=== PATIENT | male | born 1975 | race African-American/Black ===

== ENCOUNTER 2018-03-24 09:51 | Inpatient (IN) | payer OTHER ==
[2018-03-24 10:17] VITALS: BMI 20.9
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
[2018-03-24] MEDS ORDERED: P-EPHED 60MG/TRIPROLIDI 2.5MG TABLET PO PRN (11:09)
[2018-03-24] MEDS ORDERED: MAG HYDROX/AL HYDROX/SIMETH 30 ML UNIT-DOSE CUP PO PRN (11:09)
[2018-03-24] MEDS ORDERED: MAGNESIUM HYDROX 2400MG/30ML ORAL SUSPENSION 30 ML CUP PO PRN (11:09)
[2018-03-24] MEDS ORDERED: MAGNESIUM CITRATE 300 ML BOTTLE PO PRN (11:09)
[2018-03-24] MEDS ORDERED: guaiFENesin/D-METHORPHAN HB 10 ML UNIT-DOSE CUPS PO PRN (11:09)
[2018-03-24] MEDS ORDERED: MENTHOL/PHENOL 1 EACH UD MM PRN (11:09)
[2018-03-24] MEDS ORDERED: ACETAMINOPHEN 325 MG TABLET (FP) PO PRN (11:09)
[2018-03-24] MEDS ORDERED: IBUPROFEN 400 MG TABLET (FP) PO PRN (11:09)
[2018-03-24] MEDS ORDERED: METHADONE HCL 10 MG TABLET (FOR DETOX USE ONLY) PO ONE (12:25)
[2018-03-24] MEDS: diazePAM 5 MG TABLET PO PRN (12:59)
[2018-03-24] MEDS: diazePAM 5 MG TABLET PO SCH ×2 (14:41→22:07)
[2018-03-24] MEDS: THIAMINE HCL 100 MG TABLET (FP) PO SCH (22:06)
[2018-03-24] MEDS: MELATONIN 5 MG TABLETS PO PRN (22:07)
[2018-03-24] MEDS ORDERED: METHADONE HCL 5 MG TABLET (FOR DETOX USE ONLY) PO ONE (23:00)
[2018-03-25] MEDS: diazePAM 5 MG TABLET PO PRN (08:52)
[2018-03-25] MEDS ORDERED: METHADONE HCL 10 MG TABLET (FOR DETOX USE ONLY) PO SCH (10:00)
[2018-03-25] MEDS: PRENATAL VITAMINS W/ FOLIC ACID TABLET (FP) PO SCH (10:14)
[2018-03-25] MEDS: diazePAM 5 MG TABLET PO SCH ×2 (10:15→22:42)
[2018-03-25 11:05] LABS: HEMATOCRIT 40.2 % (35.4-49); HEMOGLOBIN 12.9 GM/dL (11.7-16.9); MCH 30.1 pg (25.7-33.7); MEAN CELL VOLUME 94.2 fl (80-96); MEAN PLT VOLUME 8.1 fl (7.5-11.1); PLATELET COUNT 233 K/MM3 (134-434); RBC 4.27 M/mm3 (4.00-5.60); RDW 15.2 % (11.9-15.9); WHITE BLOOD COUNT 4.5 K/mm3 (4.0-10.0)
[2018-03-25 11:27] LABS: ALBUMIN 3.3 g/dl (3.4-5.0); ALK PHOS 77 U/L (45-117); ANION GAP 5 MMOL/L (8-16); BILIRUBIN,TOTAL 0.5 mg/dL (0.2-1); BLOOD UREA NITROGEN 11 mg/dL (7-18); CALCIUM 8.6 mg/dL (8.5-10.1); CHLORIDE 105 mmol/L (98-107); CO2 30 mmol/L (21-32); CREATININE 0.9 mg/dL (0.55-1.3); GLUCOSE,RANDOM 92 mg/dL (74-106); POTASSIUM 3.9 mmol/L (3.5-5.1); SGOT/AST 15 U/L (15-37); SGPT/ALT 23 U/L (13-61); SODIUM 140 mmol/L (136-145); TOT PROT 6.6 g/dl (6.4-8.2)
[2018-03-25] MEDS ORDERED: PNEUMOC 13-VAL CONJ-DIP CRM/PF 0.5 ML DISP.SYRIN IM ONE (11:57)
[2018-03-25] MEDS ORDERED: PNEUMOCOCCAL 23 VACCINE 0.5 ML VIAL IM ONE (12:00)
[2018-03-25] MEDS ORDERED: FLU VACCINE QUAD 60 MCG/0.5 ML (MDV 18-19) IM ONE (12:00)
[2018-03-25] MEDS: THIAMINE HCL 100 MG TABLET (FP) PO SCH (22:42)
[2018-03-25] MEDS: MELATONIN 5 MG TABLETS PO PRN (22:43)
[2018-03-26] MEDS ORDERED: METHADONE HCL 5 MG TABLET (FOR DETOX USE ONLY) PO SCH (06:00)
[2018-03-26] MEDS ORDERED: diazePAM 5 MG TABLET PO SCH (10:00)
[2018-03-26] MEDS: PRENATAL VITAMINS W/ FOLIC ACID TABLET (FP) PO SCH (10:16)
--- NOTE | 2018-03-26 12:15 | PN ---
[facility] Progress Note (SOAP) Subjective: PT WAS SEEN THIS MORNING IN BED. REPORTS NO ACUTE DISTRESS. ALERT O X 3. Objective: 03/26/18 12:14 Vital Signs 03/26/18 03/26/18 06:09 09:56 Temperature 97.4 F L 98.6 F Pulse Rate 58 L 72 Respiratory 16 18 Rate Blood Pressure 99/65 110/59 L Laboratory Tests 03/25/18 03/25/18 03/25/18 07:00 07:00 07:00 WBC 4.5 RBC 4.27 Hgb 12.9 Hct 40.2 MCV 94.2 MCH 30.1 MCHC 32.0 RDW 15.2 Plt Count 233 MPV 8.1 Sodium 140 Potassium 3.9 Chloride 105 Carbon Dioxide 30 Anion Gap 5 L BUN 11 Creatinine 0.9 Creat Clearance w eGFR > 60 Random Glucose 92 Calcium 8.6 Total Bilirubin 0.5 AST 15 ALT 23 Alkaline Phosphatase 77 Total Protein 6.6 Albumin 3.3 L RPR Titer Nonreactive Assessment: 03/26/18 12:14 NAD Plan: MONITOR PT STATUS
[2018-03-26] MEDS: THIAMINE HCL 100 MG TABLET (FP) PO SCH (22:14)
[2018-03-26] MEDS: MELATONIN 5 MG TABLETS PO PRN (22:14)
[2018-03-27] MEDS ORDERED: chlordiazePOXIDE HCL 25 MG CAPSULE PO PRN (10:25)
[2018-03-27] MEDS ORDERED: METHADONE HCL 10 MG TABLET (FOR DETOX USE ONLY) PO ONE ×2 (10:25→23:00)
[2018-03-27] MEDS: PRENATAL VITAMINS W/ FOLIC ACID TABLET (FP) PO SCH (10:28)
[2018-03-27] MEDS: chlordiazePOXIDE HCL 25 MG CAPSULE PO SCH ×3 (11:10→22:06)
--- NOTE | 2018-03-27 14:16 | PN ---
[facility] Progress Note (SOAP) Subjective: Feeling weak, sweating, interrupted sleep, anxious. Patient is not on any detox protocol. Patient reports alcohol and opioid dependence. Objective: 03/27/18 14:14 Last Vital Signs Temp Pulse Resp BP Pulse Ox 97.8 F 65 16 103/66 03/27/18 11:02 03/27/18 11:02 03/27/18 11:02 03/27/18 11:02 Laboratory Tests 03/25/18 03/25/18 03/25/18 07:00 07:00 07:00 WBC 4.5 RBC 4.27 Hgb 12.9 Hct 40.2 MCV 94.2 MCH 30.1 MCHC 32.0 RDW 15.2 Plt Count 233 MPV 8.1 Sodium 140 Potassium 3.9 Chloride 105 Carbon Dioxide 30 Anion Gap 5 L BUN 11 Creatinine 0.9 Creat Clearance w eGFR > 60 Random Glucose 92 Calcium 8.6 Total Bilirubin 0.5 AST 15 ALT 23 Alkaline Phosphatase 77 Total Protein 6.6 Albumin 3.3 L RPR Titer Nonreactive Labs reviewed Assessment: 03/27/18 14:14 Withdrawal symptoms Plan: Continue detox Started on librium and methadone detox protocol for alcohol and opioid dependence. Encouraged PO water intake
[2018-03-27] MEDS: THIAMINE HCL 100 MG TABLET (FP) PO SCH (22:05)
[2018-03-28] MEDS: chlordiazePOXIDE HCL 25 MG CAPSULE PO SCH (05:16)
[2018-03-28] MEDS ORDERED: METHADONE HCL 10 MG TABLET (FOR DETOX USE ONLY) PO ONE (10:00)
[2018-03-28] MEDS ORDERED: METHADONE HCL 5 MG TABLET (FOR DETOX USE ONLY) PO SCH (10:00)
[2018-03-28] MEDS: PRENATAL VITAMINS W/ FOLIC ACID TABLET (FP) PO SCH (10:06)
[2018-03-28] MEDS: chlordiazePOXIDE 5 MG CAPSULE PO SCH ×3 (10:06→22:22)
[2018-03-28] MEDS ORDERED: chlordiazePOXIDE 5 MG CAPSULE PO SCH (11:00)
--- NOTE | 2018-03-28 12:12 | PN ---
[facility] Progress Note Note: PATIENT CONTINUES WITH DETOX REGIMEN. C/O NIGHT SWEATS, NAUSEA/DIARRHEA AND INTERRUPTED SLEEP. Vital Signs Temperature 97.5 F L 03/28/18 09:19 Pulse Rate 68 03/28/18 09:19 Respiratory Rate 18 03/28/18 09:19 Blood Pressure 101/61 03/28/18 09:19 O2 Sat by Pulse Oximetry (%) Laboratory Tests 03/25/18 03/25/18 03/25/18 07:00 07:00 07:00 WBC 4.5 RBC 4.27 Hgb 12.9 Hct 40.2 MCV 94.2 MCH 30.1 MCHC 32.0 RDW 15.2 Plt Count 233 MPV 8.1 Sodium 140 Potassium 3.9 Chloride 105 Carbon Dioxide 30 Anion Gap 5 L BUN 11 Creatinine 0.9 Creat Clearance w eGFR > 60 Random Glucose 92 Calcium 8.6 Total Bilirubin 0.5 AST 15 ALT 23 Alkaline Phosphatase 77 Total Protein 6.6 Albumin 3.3 L RPR Titer Nonreactive PE: ALERT AND ORIENTED X 3 SKIN WARM AND DRY CAR S1S2 RESP CTA BL EXT NO VISIBLE TREMORS A/P: WITHDRAWAL SX CONTINUE DETOX ENCOURAGE ORAL FLUIDS CONTINUE TO MONITOR
[2018-03-28] MEDS: THIAMINE HCL 100 MG TABLET (FP) PO SCH (22:21)
[2018-03-28] MEDS: MELATONIN 5 MG TABLETS PO PRN (22:23)
[2018-03-29] MEDS ORDERED: chlordiazePOXIDE HCL 10 MG CAPSULE PO SCH ×2 (05:00→11:00)
[2018-03-29] MEDS ORDERED: METHADONE HCL 5 MG TABLET (FOR DETOX USE ONLY) PO SCH (06:00)
[2018-03-29 06:19] VITALS: BP 94/62; PULSE 67; TEMP 97
[2018-03-29] MEDS ORDERED: METHADONE HCL 10 MG TABLET (FOR DETOX USE ONLY) PO SCH (10:00)
--- NOTE | 2018-03-29 10:54 | DS ---
[facility] Detox Discharge Summary Admission Date: 03/24/18 Discharge Date: 03/29/18 - History Present History: Alcohol Dependence, Opioid Dependence Additional Comments: 42 years old male admitted on 03/24/18 for alcohol and opiate stabilization completed detox regimen left the detox unit earlier today the specifications writer did not seen nor evaluate the patient prior to the patient departed from the detox unit - Physical Exam Results Vital Signs: Vital Signs Temperature 97 F L 03/29/18 06:18 Pulse Rate 67 03/29/18 06:18 Respiratory Rate 18 03/29/18 06:18 Blood Pressure 94/62 03/29/18 06:18 O2 Sat by Pulse Oximetry (%) Pertinent Admission Physical Exam Findings: alcohol and opiate withdrawal sx Laboratory Last Values WBC 4.5 K/mm3 (4.0-10.0) 03/25/18 07:00 RBC 4.27 M/mm3 (4.00-5.60) 03/25/18 07:00 Hgb 12.9 GM/dL (11.7-16.9) 03/25/18 07:00 Hct 40.2 % (35.4-49) 03/25/18 07:00 MCV 94.2 fl (80-96) 03/25/18 07:00 MCH 30.1 pg (25.7-33.7) 03/25/18 07:00 MCHC 32.0 g/dl (32.0-35.9) 03/25/18 07:00 RDW 15.2 % (11.9-15.9) 03/25/18 07:00 Plt Count 233 K/MM3 (134-434) 03/25/18 07:00 MPV 8.1 fl (7.5-11.1) 03/25/18 07:00 Sodium 140 mmol/L (136-145) 03/25/18 07:00 Potassium 3.9 mmol/L (3.5-5.1) 03/25/18 07:00 Chloride 105 mmol/L (98-107) 03/25/18 07:00 Carbon Dioxide 30 mmol/L (21-32) 03/25/18 07:00 Anion Gap 5 MMOL/L (8-16) L 03/25/18 07:00 BUN 11 mg/dL (7-18) 03/25/18 07:00 Creatinine 0.9 mg/dL (0.55-1.3) 03/25/18 07:00 Creat Clearance w eGFR > 60 (>60) 03/25/18 07:00 Random Glucose 92 mg/dL (74-106) 03/25/18 07:00 Calcium 8.6 mg/dL (8.5-10.1) 03/25/18 07:00 Total Bilirubin 0.5 mg/dL (0.2-1) 03/25/18 07:00 AST 15 U/L (15-37) 03/25/18 07:00 ALT 23 U/L (13-61) 03/25/18 07:00 Alkaline Phosphatase 77 U/L (45-117) 03/25/18 07:00 Total Protein 6.6 g/dl (6.4-8.2) 03/25/18 07:00 Albumin 3.3 g/dl (3.4-5.0) L 03/25/18 07:00 RPR Titer Nonreactive (NONREACTIVE) 03/25/18 07:00 lab noted - Treatment Hospital Course: Detox Protocol Followed, Detoxed Safely, Responded well, Discharged Condition Good, Rehab Referral Accepted Patient has Accepted a Rehab Referral to: [facility] - Medication Discharge Medications: Ambulatory Orders NK [No Known Home Medication] 03/24/18 - Diagnosis (1) Opioid dependence with withdrawal Status: Acute (2) Alcohol dependence with uncomplicated withdrawal Status: Acute (3) Nicotine dependence Status: Acute Qualifiers: Nicotine product type: cigarettes Substance use status: in withdrawal Qualified Code(s): F17.213 - Nicotine dependence, cigarettes, with withdrawal - AMA Did Patient Leave Against Medical Advice: No
[2018-03-30] MEDS ORDERED: METHADONE HCL 5 MG TABLET (FOR DETOX USE ONLY) PO SCH (06:00)
== END 2018-03-29 06:35 | disposition home or self-care (01) | DRG 773 ==
LOC: EDBD 09:51 → YASAS 09:51 → Y3N 12:04
PROC: HZ2ZZZZ Detoxification Services for Substance Abuse Treatment (ICD-10-PCS; principal; 2018-03-24)
DX: F11.23 Opioid dependence with withdrawal (principal); F10.230 Alcohol dependence with withdrawal, uncomplicated; F14.20 Cocaine dependence, uncomplicated; F17.213 Nicotine dependence, cigarettes, with withdrawal; M25.562 Pain in left knee; G89.29 Other chronic pain
CPT/HCPCS: 36415; 80053; 85027; 86593